=== PATIENT | male | born 2000 | race African-American/Black ===

== ENCOUNTER 2024-05-14 09:00 | Emergency (ER) | payer MEDICAID ==
[~2024-05-14] VITALS: Ht 175.3 cm; Wt 62.7 kg
[2024-05-14 09:01] VITALS: BP 156/86; PULSE 77; RESP 17; TEMP 98.1; O2SAT 100
[2024-05-14] MEDS ORDERED: DEC4 PO (09:32)
[2024-05-14] MEDS ORDERED: AMOX1TAB8 PO (09:32)
[2024-05-14] MEDS ORDERED: IBUP-2213 PO (09:32)
[2024-05-14] MEDS ORDERED: BENZ-300 PO (09:32)
[2024-05-14] MEDS: KETOROLAC 30 MG/ML VIAL IM ONE (09:40)
[2024-05-14] MEDS: ACETAMINOPHEN EXTRA STRENGTH 500 MG TAB PO ONE (09:41)
[2024-05-14 09:48] VITALS: BP 156/86; PULSE 77; RESP 17; TEMP 98.1; O2SAT 100
[2024-05-14 10:37] LABS: FLU A ANTIGEN negative (NEGATIVE); FLU B ANTIGEN negative (NEGATIVE)
== END 2024-05-14 09:48 | disposition home or self-care (01) ==
LOC: MED 09:00
DX: J02.0 Streptococcal pharyngitis (principal); Z20.822 Contact with and (suspected) exposure to COVID-19; R51.9 Headache, unspecified
CPT/HCPCS: 87081; 87426; 87804; 96372; 99283; J1885